=== PATIENT | male | born 1985 | race Caucasian/White ===

== ENCOUNTER → 2021-05-30 | Outpatient (CLI) | payer OTHER ==
[~2021-05-30] MED LIST: AEROCHAMBER1 EA XX; PREDNISONE20 MG PO; TAMIFLU75 MG PO; VENTOLIN HFA 66.7 GM INH
== END ==
LOC: KOH-I 13:50
DX: J43.9 Emphysema, unspecified (principal); R91.8 Other nonspecific abnormal finding of lung field
CPT/HCPCS: 71046

== ENCOUNTER 2022-01-29 14:46 | Emergency (ER) | payer OTHER ==
[2022-01-29 15:34] LABS: HEMOGLOBIN 17.2 gm/dl (14.0-17.5); RED BLOOD COUNT 6.31 M/UL (4.20-5.50); WHITE BLOOD COUNT 12.3 K/UL (4.5-11.0)
[2022-01-29 16:11] LABS: BUN/CREATININE RATIO 8 (0-10)
[2022-01-29] MEDS ORDERED: CEPHALEXIN500 MG PO (17:54)
== END 2022-01-29 18:06 | disposition home or self-care (01) ==
LOC: ER1 14:46
PROVIDERS: Physician Assistant
DX: L03.116 Cellulitis of left lower limb (principal); L03.115 Cellulitis of right lower limb; E66.01 Morbid (severe) obesity due to excess calories; R73.9 Hyperglycemia, unspecified; F17.210 Nicotine dependence, cigarettes, uncomplicated
CPT/HCPCS: 71045; 80053; 82550; 82553; 83605; 83735; 83880; 84439; 84443; 84484; 85025; 85379; 93005; 99285